=== PATIENT | female | born 2000 | race Caucasian/White ===

== ENCOUNTER 2020-02-03 08:46 | Outpatient (CLI) | payer OTHER, SELFPAY ==
[2020-02-03 12:14] LABS: Thyroid Stimulating Hormone 10.29 uIU/mL (0.52-4.13)
== END 2020-02-03 08:47 | disposition home or self-care (01) ==
LOC: CHSLAB 08:52
PROVIDERS: PCP Family Medicine; Visit Provider Family Medicine
DX: E03.9 Hypothyroidism, unspecified (principal)
CPT/HCPCS: 36415; 84443

== ENCOUNTER 2020-02-04 09:26 | Outpatient (CLI) | payer OTHER, SELFPAY ==
--- NOTE | ~2020-02-04 | US_ITS ---
US thyroid INDICATION: Nontoxic goiter TECHNIQUE: Real-time sonographic images of the thyroid gland were obtained. COMPARISON: No prior studies for comparison. FINDINGS: The right thyroid lobe measures 5.1 x 1.8 x 1.7 cm. The left thyroid lobe measures 4.8 x 1 .7 x 1.9 cm. There is normal echotexture and echogenicity throughout the thyroid gland. No discrete n odules identified. Normal vascular flow is present. IMPRESSION: 1. Normal thyroid without discrete nodule or abnormal vascularity. Reviewed, dictated and finalized at location A.
== END 2020-02-04 09:27 | disposition home or self-care (01) ==
PROVIDERS: PCP Family Medicine; Visit Provider Family Medicine
DX: E04.9 Nontoxic goiter, unspecified (principal)
CPT/HCPCS: 76536

== ENCOUNTER 2020-04-21 09:45 | Outpatient (CLI) | payer OTHER, SELFPAY ==
[2020-04-24 11:13] LABS: TB Skin Test Erythema 0 mm; TB Skin Test Induration 0 mm (0-10); TB Skin Test Interpretation Negative (Negative); TB Skin Test Site Left Arm
== END 2020-04-21 09:46 | disposition home or self-care (01) ==
LOC: CHSLAB 09:48
PROVIDERS: PCP Family Medicine; Visit Provider Family Medicine
DX: Z11.1 Encounter for screening for respiratory tuberculosis (principal)
CPT/HCPCS: 36415; 86580

== ENCOUNTER 2020-07-01 17:06 | Outpatient (CLI) | payer OTHER, SELFPAY ==
[2020-07-01 19:14] LABS: Thyroid Stimulating Hormone 14.17 uIU/mL (0.36-3.74)
== END 2020-07-01 17:07 | disposition home or self-care (01) ==
PROVIDERS: PCP Family Medicine; Visit Provider Family Medicine
DX: E03.9 Hypothyroidism, unspecified (principal)
CPT/HCPCS: 36415; 84443

== ENCOUNTER 2020-08-10 10:34 | Emergency (ER) | payer OTHER, SELFPAY ==
--- NOTE | ~2020-08-10 | CT_ITS ---
EXAMINATION: CT abdomen pelvis w con EXAM DATE: 08/10/2020 13:37 INDICATION: Mid abdominal pain, nausea, headache and diarrhea. Symptoms 1 day. TECHNIQUE: Spiral CT of the abdomen and pelvis was performed following intravenous injection of 100 m L Omnipaque 350. Axial, coronal and sagittal images were reviewed. The dose-length product (DLP) fo r this examination was 1500.24 mGy-cm. The exposure was tailored according to patient size (auto mA exposure control), and iterative reconstruction (ASIR) was used as additional dose reduction techniqu e. There is no prior study for comparison. FINDINGS: There is hepatic steatosis without suspicious focal lesion identified. Spleen, adrenal glan ds, pancreas are unremarkable. Gallbladder is unremarkable. No biliary obstruction. Portal and spl enic veins are patent. Kidneys enhance symmetrically. There is no hydronephrosis. The uterus and ovaries are unremarkable, no adnexal mass. The bladder is unremarkable. There is no retroperitoneal or pelvic lymphadenopathy. The appendix is normal. The stomach and small bowel are unremarkable. There is expected amount of c olonic stool. No free intraperitoneal gas. The heart is normal in size. There are no pericardial or pleural effusions. The lung bases are unremarkable. There are no osteoblastic or osteolytic les ions identified. IMPRESSION: 1. Hepatic steatosis. 2. No acute intra-abdominal findings. Reviewed, dictated and finalized at location B. SECRETARY
[2020-08-10 11:49] VITALS: BP 129/74; PULSE 99; RESP 16; TEMP 36.7; O2SAT 99
--- NOTE | 2020-08-10 12:26 | ECG_ITS ---
Measurements Intervals [place] Rate: 78 P: 49 [place]: 170 QRS: 44 QRSD: 106 T: 6 QT: 401 QTc: 457 Interpretive Statements SINUS RHYTHM NONSPECIFIC T-WAVE ABNORMALITY- INFERIOR LEADS BASELINE WANDER- V1 BORDERLINE ECG Electronically Signed On 08-10-2020 12:52:29 BUILDING CARPENTER by George Gasca D.O.
[2020-08-10 12:52] LABS: Basophils Percent Auto 0.8 % (0.0-1.0); Eosinophils Absolute Auto 0.38 K/mm3 (0.02-0.50); Hematocrit 38.8 % (35.0-49.0); Hemoglobin 12.6 g/dL (12.0-15.0); Immature Granulocyte Absolute 0.06 K/mm3 (0.00-0.00); Immature Granulocyte Percent A 0.5 % (0.0-0.0); Lymphocytes Percent Auto 26.9 % (18.0-42.0); Mean Corpuscular HGB Conc 32.5 g/dL (32.0-36.0); Mean Corpuscular Hemoglobin 27.9 pg (27.0-31.0); Mean Corpuscular Volume 85.8 fL (78.0-102.0); Mean Platelet Volume 9.4 fl (9.2-11.8); Monocytes Absolute Auto 0.66 K/mm3 (0.10-0.90); Monocytes Percent Auto 5.2 % (2.0-11.0); Neutrophils Absolute Auto 8.1 K/mm3 (1.7-7.2); Neutrophils Percent Auto 63.6 % (50.0-70.0); Platelet Count Result 401 K/mm3 (150-420); Red Blood Count 4.52 M/mm3 (4.20-5.40); Red Cell Distribution Width 12.3 % (11.6-14.4); White Blood Count 12.7 K/mm3 (4.8-10.8)
[2020-08-10 12:54] LABS: Appearance Urine Clear (Clear); Bilirubin Urine Negative (Negative); Color Urine Yellow (Yellow); Glucose Urine UA Negative (Negative); Ketones Urine Trace (Negative); Leukocyte Esterase Ur Negative (Negative); Nitrate Urine Negative (Negative); Protein Urine Negative (Negative); Specific Grav Ur 1.025 (1.010-1.020); Urobilinogen Urine 0.2 mg/dL (0.2-1.0)
[2020-08-10 12:55] LABS: Pregnancy On Board Control Positive; Urine Pregnancy Test Negative
[2020-08-10 12:58] LABS: Add Urine Microscopic? YES; Bacteria Urine Trace /hpf; Blood Urine Trace-Intact (Negative); RBC Urine 0-2 /hpf (0-2); Squamous Epithelial Cell Urine Occasional /hpf (Few); WBC Urine 0-3 /hpf (0-3)
[2020-08-10 13:14] LABS: Lactic Acid Reflex 2.1 mmol/L (0.4-2.0)
[2020-08-10] MEDS: ONDANSETRON INJ 4 MG/2 ML VIAL IV PUSH (13:16)
[2020-08-10] MEDS: SODIUM CHLORIDE 0.9% IV 1,000 ML 999 ML IV CONT (13:17)
[2020-08-10 13:21] LABS: Alanine Aminotransferase 58 U/L (14-59); Albumin Level 3.7 g/dL (3.4-5.0); Alkaline Phosphatase 47 U/L (46-116); Anion Gap 14 mmol/L (8-16); Aspartate Amino Transferase 44 U/L (15-37); Bilirubin,Total 0.3 mg/dL (0.00-1.00); Blood Urea Nitrogen 16 mg/dL (7-18); Calcium 9.5 mg/dL (8.5-10.1); Carbon Dioxide 25 mmol/L (21-32); Chloride 99 mmol/L (98-108); Estimated CRCL calculation 154 ml/min; Estimated Glomerular Filt Rate > 60; Glucose 85 mg/dL (70-99); Lipase 89 U/L (73-393); Osmolality Calculated 286 mOsm/kg (285-295); Potassium 4.2 mmol/L (3.5-5.1); Sodium 138 mmol/L (136-145); Thyroid Stimulating Hormone 3.46 uIU/mL (0.36-3.74); Total Protein 8.1 g/dL (6.4-8.2)
--- NOTE | 2020-08-10 13:57 | ED.GENADULT ---
HPI - General Adult General Chief complaint: Recheck/Abnormal Lab/Rx Stated complaint: light headed,faciial spasms Source: patient Mode of arrival: ambulatory Limitations: no limitations History of Present Illness HPI narrative: this is a 20-year-old female with a history of hypothyroidism, history of trichotillomania. The patient presents with some increased weakness nausea with some mild abdominal pain with no diarrhea constipation no fever or chills no chest pain or shortness of breath. The patient feels like she has been having weakness that intensified over the last 24 hours has not had a bed has not been drinking quite as much fluids as she should. There is currently no fever or chills no dysuria no hematuria. Patient has a history of hypothyroidism and her dosages have been adjusted approximately 5 to 6 months ago. Onset (ago): hour(s) Severity: mild Pain Consistency: intermittent Relieving factors: none Exacerbating factors: none Associated symptoms: nausea/vomiting Related Data Home Medications Medication Instructions Recorded Confirmed norgestimate-ethinyl estradiol 1 tablet PO DAILY 08/10/20 08/10/20 [Tri Femynor] Allergies Allergy/AdvReac Type Severity Reaction Status Date / Time No Known Allergies Allergy Verified 07/01/20 08:53 Review of Systems Review of Systems: All systems reviewed & are unremarkable except as noted in HPI and below PMFSH Past Medical History Medical History (Updated 08/10/20 @ 14:02 by Phan Perry MD) Anxiety Depression Hypothyroidism Trichotillomania Surgical History Surgical History No pertinent past surgical history Social History Social History Smoking status: Never smoker Exam Const: General: no acute distress Orientation/consciousness: patient oriented x3 HENMT: Head: normal to inspection Eyes: Conjunctivae: conjunctivae normal Pupils: Equal, round and reactive pupils present EOM: EOMs intact bilaterally Direct Ophthalmoscopy: no photophobia Neck: Neck: normal visual inspection, no lymphadenopathy and no meningeal signs Chest: Chest palpation & inspection: normal inspection of the chest Resp: Effort & Inspection: normal respiratory effort Auscultation: clear to auscultation bilaterally Cardio: Rate: regular rate Rhythm: regular rhythm GI: GI Palp: Yes Soft to palpation : General: Yes no CVA tenderness Urinary Catheter: Urinary Catheter: patent and draining Back/Spine/Pelvis: Back: no CVA tenderness Skin: General skin exam: normal color Rashes: no rashes Neuro: General: patient oriented x3, moves all extremities, no meningeal signs and no focal motor deficits Psych: Appearance: grossly normal Mental Status: mental status grossly normal Course Course Emergency Course: Patient received IV fluids and reassessment of patient is feeling much better currently no nausea abdominal pain is improved, mother was in the room with the patient and advised that she drink plenty of fluids and to follow with the primary care physician if symptoms persist or worsen. Vital Signs Vital signs: Vital Signs Temperature 36.7 C 08/10/20 11:49 Pulse Rate 99 08/10/20 11:49 Respiratory Rate 16 08/10/20 11:49 Blood Pressure 129/74 08/10/20 11:49 Pulse Oximetry 99 08/10/20 11:49 Temperature 36.7 C 08/10/20 11:49 Pulse Rate 99 08/10/20 11:49 Respiratory Rate 16 08/10/20 11:49 Blood Pressure 129/74 08/10/20 11:49 Pulse Oximetry 99 08/10/20 11:49 Medical Decision Making Vital Signs Vital Signs: Vital Signs Temperature 36.7 C 08/10/20 11:49 Pulse Rate 99 08/10/20 11:49 Respiratory Rate 16 08/10/20 11:49 Blood Pressure 129/74 08/10/20 11:49 Pulse Oximetry 99 08/10/20 11:49 Temperature 36.7 C 08/10/20 11:49 Pulse Rate 99 08/10/20 11:49 Respiratory Rate 16
[2020-08-10 14:03] VITALS: BP 131/75; PULSE 79; RESP 16; O2SAT 99
[2020-08-10 15:48] LABS: Reflex Lactic Acid Yes or No Add Lactic
== END 2020-08-10 14:09 | disposition home or self-care (01) ==
PROVIDERS: Emergency Provider Emergency Medicine; PCP Family Medicine
DX: R53.1 Weakness (principal); R11.2 Nausea with vomiting, unspecified
CPT/HCPCS: 36415; 74177; 80053; 81001; 81025; 83605; 83690; 84443; 85025; 93005; 96361; 96374; 99283; 99284; J2405; J7030; Q9965

== ENCOUNTER 2021-02-12 09:11 | Outpatient (CLI) | payer OTHER, SELFPAY ==
[2021-02-12 10:07] LABS: Thyroid Stimulating Hormone Reflex 4.66 u/IU/mL (0.36-3.74)
== END 2021-02-12 09:12 | disposition home or self-care (01) ==
LOC: CHSLAB 09:14
PROVIDERS: PCP Family Medicine; Visit Provider Family Medicine
DX: E11.9 Type 2 diabetes mellitus without complications (principal); E03.9 Hypothyroidism, unspecified
CPT/HCPCS: 36415; 84439; 84443

== ENCOUNTER 2021-04-13 13:58 | Outpatient (CLI) | payer OTHER, SELFPAY ==
[2021-04-13 15:35] LABS: Free T4 Free Thyroxine 1.33 ng/dL (0.76-1.46)
[2021-04-15 10:51] LABS: Vitamin D 25 Hydroxy 21 ng/mL (30-100)
== END 2021-04-13 13:59 | disposition home or self-care (01) ==
LOC: CHSLAB 14:01
PROVIDERS: PCP Family Medicine; Visit Provider Nurse Practitioner Family
DX: E03.9 Hypothyroidism, unspecified (principal); Z79.899 Other long term (current) drug therapy
CPT/HCPCS: 36415; 82306; 84439; 84443

== ENCOUNTER 2021-06-10 09:12 | Outpatient (CLI) | payer OTHER, SELFPAY ==
[2021-06-12 12:40] LABS: Vitamin D 25 Hydroxy 34 ng/mL (30-100)
== END 2021-06-10 09:13 | disposition home or self-care (01) ==
LOC: CHSLAB 09:14
PROVIDERS: PCP Family Medicine; Visit Provider Nurse Practitioner Family
DX: E55.9 Vitamin D deficiency, unspecified (principal)
CPT/HCPCS: 36415; 82306

== ENCOUNTER 2021-08-25 18:26 | Outpatient (NON) | payer OTHER, SELFPAY | END 2021-08-25 18:27 | disposition home or self-care (01) | LOC: CHSLAB 18:27 | PROVIDERS: Visit Provider Nurse Practitioner Family | DX: R10.31 Right lower quadrant pain (principal); R10.32 Left lower quadrant pain; N89.8 Other specified noninflammatory disorders of vagina; M54.9 Dorsalgia, unspecified | CPT/HCPCS: 87491; 87591; 87661 ==

== ENCOUNTER 2021-09-06 14:59 | Outpatient (NON) | payer OTHER, SELFPAY | END 2021-09-06 15:00 | disposition home or self-care (01) | LOC: CHSLAB 15:01 | PROVIDERS: Visit Provider Nurse Practitioner Family | DX: Z12.4 Encounter for screening for malignant neoplasm of cervix (principal); Z13.89 Encounter for screening for other disorder | CPT/HCPCS: 87491; 87591; 88175; G0145 ==

== ENCOUNTER 2022-11-23 16:47 | Outpatient (NON) | payer OTHER, SELFPAY | END 2022-11-23 16:48 | disposition home or self-care (01) | LOC: CHSLAB 16:48 | PROVIDERS: Visit Provider Nurse Practitioner Family | DX: L08.9 Local infection of the skin and subcutaneous tissue, unspecified (principal) | CPT/HCPCS: 87070; 87075; 87205 ==

== ENCOUNTER 2023-12-01 15:23 | Outpatient (CLI) | payer OTHER, SELFPAY ==
[2023-12-01 15:59] LABS: Basophils Absolute Auto 0.09 K/mm3 (0.00-0.10); Basophils Percent Auto 0.7 % (0.0-1.0); Eosinophils Absolute Auto 0.48 K/mm3 (0.02-0.50); Eosinophils Percent Auto 3.8 % (1.0-6.0); Hematocrit 36.9 % (35.0-49.0); Hemoglobin 11.9 g/dL (12.0-15.0); Immature Granulocyte Absolute 0.04 K/mm3 (0.00-0.00); Immature Granulocyte Percent A 0.3 % (0.0-0.0); Lymphocytes Absolute Auto 4.67 K/mm3 (1.10-4.50); Lymphocytes Percent Auto 36.9 % (18.0-42.0); Mean Corpuscular HGB Conc 32.2 g/dL (32.0-36.0); Mean Corpuscular Hemoglobin 27.4 pg (27.0-31.0); Mean Corpuscular Volume 84.8 fL (78.0-102.0); Mean Platelet Volume 9.7 fl (9.2-11.8); Monocytes Absolute Auto 0.71 K/mm3 (0.10-0.90); Monocytes Percent Auto 5.6 % (2.0-11.0); Neutrophils Absolute Auto 6.7 K/mm3 (1.7-7.2); Neutrophils Percent Auto 52.7 % (50.0-70.0); Platelet Count Result 436 K/mm3 (150-420); Red Blood Count 4.35 M/mm3 (4.20-5.40); Red Cell Distribution Width 12.6 % (11.6-14.4); White Blood Count 12.7 K/mm3 (4.8-10.8)
[2023-12-01 16:18] LABS: Alanine Aminotransferase 32 U/L (14-59); Albumin Level 3.1 g/dL (3.4-5.0); Alkaline Phosphatase 59 U/L (46-116); Anion Gap 10 mmol/L (8-16); Aspartate Amino Transferase 21 U/L (15-37); Bilirubin,Total 0.1 mg/dL (0.00-1.00); Blood Urea Nitrogen 12 mg/dL (7-18); Calcium 9.1 mg/dL (8.5-10.1); Carbon Dioxide 27 mmol/L (21-32); Chloride 102 mmol/L (98-108); Estimated Glomerular Filt Rate > 60; Glucose 84 mg/dL (70-99); Osmolality Calculated 286 mOsm/kg (285-295); Potassium 4.3 mmol/L (3.5-5.1); Sodium 139 mmol/L (136-145)
[2023-12-01 16:38] LABS: Thyroid Stimulating Hormone Reflex 0.13 u/IU/mL (0.36-3.74)
[2023-12-01 16:59] LABS: Free T4 Free Thyroxine Reflex 1.28 ng/dL (0.76-1.46)
== END 2023-12-01 15:24 | disposition home or self-care (01) ==
LOC: CHSLAB 15:25
PROVIDERS: PCP Family Medicine; Visit Provider Family Medicine
DX: E11.9 Type 2 diabetes mellitus without complications (principal); E03.9 Hypothyroidism, unspecified
CPT/HCPCS: 36415; 80053; 84439; 84443; 85025

== ENCOUNTER 2024-11-18 07:09 | Emergency (ER) | payer OTHER, SELFPAY ==
[2024-11-18] VITALS (7 sets, daily range): BP systolic 108–160; BP diastolic 58–96; PULSE 83–121; RESP 16–18; TEMP 36.6–36.8; O2SAT 98–100
--- OUTSIDE RECORDS SUMMARY | 2024-11-18 07:12 | XMS_ITS | Patient Health Summary ---
Author Organization [facility] Address [address] [place] [address] Care Team Providers Care Radio Presenter Name Role Phone Serge Mcgee MD Primary Care Provider Note from [facility],non-owned Affiliates and Associated Physician Practices is amultiple site organization consisting of ambulatory clinics and hospital sitesin [place], [place], [place] and [place]. This disclosure is being madepursuant to the Care Everywhere program and may not contain all information available regarding this patient. Last updated 18.[facility] Social History Tobacco Use Types Packs/Day Years Used Date Smoking Tobacco: Never Assessed Sex and Gender Information Value Date Recorded Sex Assigned at Not on file Gender Identity Not on file Sexual Orientation Not on file Care Teams Radio Presenter Relationship Specialty Start Date End Date Serge Mcgee MD [address] [place] [address] [place] [address] PCP - General Family Medicine 03/20/17
--- OUTSIDE RECORDS SUMMARY | 2024-11-18 07:12 | XMS_ITS | Clinical Summary ---
Author Organization [facility] Address [address] [place] [address] Care Team Providers Care Emergency Medicine Physician Name Role Phone Serge Mcgee MD Primary Care Provider Source Comments [facility],non-owned Affiliates and Associated Physician Practices is amultiple site organization consisting of ambulatory clinics and hospital sitesin [place], [place], [place] and [place]. This disclosure is being madepursuant to the Care Everywhere program and may not contain all information available regarding this patient. Last updated 18.[facility] Social History Tobacco Use Types Packs/Day Years Used Date Smoking Tobacco: Never Assessed Sex and Gender Information Value Date Recorded Sex Assigned at Not on file Gender Identity Not on file Sexual Orientation Not on file Plan of Treatment Health Maintenance Due Date Last Done Comments PAP SMEAR 2000 HIV SCREENING 02/08/2015 HPV VACCINE (1 - 3-dose series) 02/08/2015 CHLAMYDIA/GONORRHEA SCREENING 2016 HEPATITIS C SCREENING 02/04/2018 DTAP/TDAP/TD VACCINES (1 - Tdap) 02/08/2019 HEPATITIS B VACCINE (1 of 3 - 19+ 3-dose series) 02/08/2019 COVID-19 VACCINE ( - 2023-2 5 season) 2024 INFLUENZA VACCINE (#1) 2024 DEPRESSION SCREENING 10/09/2024 ZOSTER VACCINE (1 of 2) 02/08/2050 HIB VACCINE Aged Out No longer eligi ble based on patient's age to complete this topic MENINGOCOCCAL (Group B) VACCINE Aged Out No longer eligible based on patient's age to complete this topic MENINGOCOCCAL VACCINE Aged Out No chata nahum eligible based on patient's age to complete this topic PNEUMOCOCCAL VACCINE Aged Out No long er eligible based on patient's age to complete this topic Care Teams Emergency Medicine Physician Relationship Specialty Start Date End Date Serge Mcgee MD [address] [place] [address] [place] [address] PCP - General Family Medicine 03/20/17
--- OUTSIDE RECORDS SUMMARY | 2024-11-18 07:12 | XMS_ITS | Referral Summary ---
Author Organization [facility] Address [address] [place] [address] Care Team Providers Care Youth Ministry Director Name Role Phone Serge Mcgee MD Primary Care Provider Source Comments [facility],non-owned Affiliates and Associated Physician Practices is amultiple site organization consisting of ambulatory clinics and hospital sitesin [place], [place], [place] and [place]. This disclosure is being madepursuant to the Care Everywhere program and may not contain all information available regarding this patient. Last updated 18.[facility] Social History Tobacco Use Types Packs/Day Years Used Date Smoking Tobacco: Never Assessed Sex and Gender Information Value Date Recorded Sex Assigned at Not on file Gender Identity Not on file Sexual Orientation Not on file Plan of Treatment Not on file Care Teams Youth Ministry Director Relationship Specialty Start Date End Date Serge Mcgee MD [address] [place] [address] [place] [address] PCP - General Family Medicine 03/20/17
--- NOTE | 2024-11-18 07:15 | ED.NAVMDI ---
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 She denies any pain. Related Data Allergies Allergy/AdvReac Type Severity Reaction Status Date / Time No Known Allergies Allergy Verified 11/18/24 07:11 Review of Systems Review of Systems: All systems reviewed & are unremarkable except as noted in HPI and below PMFSH Past Medical History Medical History BMI 40.0-44.9, adult Hypothyroidism Trichotillomania Anxiety Depression Surgical History Surgical History No pertinent past surgical history Social History Social History Smoking status: Current every day smoker Alcohol intake: never Substance use: never Lack of Transportation: No Lack of Food: Never True Current Housing: I Have Housing Concerned About Future Housing: No Difficulty Paying Gas/Electric Bills: No Difficulty Paying for Meds: No Currently Unemployed: No Education: Associate Degree Difficulty w/ Childcare or Family Care: No Living arrangements: with family Exam Narrative: General appearance: Well-developed, well-nourished Skin: Normal color Head: Normocephalic, nontraumatic Eyes: Clear conjunctiva ENT: Oropharynx normal, ears normal, nose normal Neck: Supple, nontender Chest and respiratory: Airway patent, no respiratory distress, no accessory muscle use Heart: Regular rate/rhythm Abdomen: Soft, nontender, no organomegaly, quiet bowel sounds Vascular: Normal peripheral pulses, normal capillary refill. Musculoskeletal: Normal range of motion, nontender back Neurologic: Alert and oriented ?3, MECHANICAL RESEARCH ENGINEER is normal as tested, no gross motor deficit Course Vital Signs Vital signs: Vital Signs Temperature 36.6 C 11/18/24 07:09 Pulse Rate 121 H 11/18/24 07:09 Respiratory Rate 18 11/18/24 07:09 Blood Pressure 160/95 H 11/18/24 07:09 Pulse Oximetry 98 11/18/24 07:09 Oxygen Delivery Room Air 11/18/24 07:09 Temperature 36.6 C 11/18/24 07:09 Pulse Rate 83 11/18/24 09:00 Respiratory Rate 16 11/18/24 09:00 Blood Pressure 108/58 L 11/18/24 09:00 Pulse Oximetry 100 11/18/24 09:00 Oxygen Delivery Room Air 11/18/24 09:00 MDM - Nausea/Vomiting/Diarrhea MDM Narrative Medical decision making narrative: patient came with nausea, vomiting and diarrhea Vital signs showing blood pressure 160/95, heart rate of 121 Physical examination showing insignificant abnormalities Differential diagnosis include viral gastroenteritis, dehydration, electrolyte imbalance Blood workup today includes CBC, CMP, showed insignificant abnormality Urinalysis showed Respiratory panel came back negative for COVID, flu and RSV Diagnosis gastroenteritis Discharged on Zofran the pt was discharged to home.the pt,s condition upon discharge was fair,education was provided to the pt in reference to the final impression,discharge study results,treatment,prognosis and need for follow up . Differential Diagnosis Differential diagnosis: Likely gastroenteritis and dehydration Medical Records Attestation: I reviewed the patient's medical records. Lab Data Attestation: I reviewed the patient's lab results. 11/18/24 08:50 11/18/24 08:50 Labs: Lab Results 11/18/24 11/18/24 Range/Units 07:16 08:50 WBC 10.3 (4.8-10.8) K/mm3 RBC 4.70 (4.20-5.40) M/mm3 Hgb 13.0 (12.0-15.0) g/dL Hct 40.9 (35.0-49.0) % MCV 87.0 (78.0-102.0) fL MCH 27.7 (27.0-31.0) pg MCHC 31.8 L (32-36) g/dL RDW 12.4 (11.6-14.4) % Plt Count 260 (150-420) K/mm3 MPV 9.4 (9.2-11.8) fl Immature Gran % (Auto) 0.3 H (0.0-0.0) % Neut % (Auto) 88.4 H (50.0-70.0) % Lymph % (Auto) 6.3 L (18.0-42.0) % [place] % (Auto) 3.2 (2.0-11.0) % Eos % (Auto) 1.6 (1.0-6.0) % Baso % (Auto) 0.2 (0.0-1.0) % Lymph # (Auto) 0.65 L (1.10-4.50) K/mm3 [place] # (Auto) 0.33 (0.10-0.90) K/mm3 Eos # (Auto) 0.17 (0.02-0.50) K/mm3 Baso # (Auto) 0.02 (0.00-0.10) K/mm3 Abs Immat Gran (auto) 0.03 H (0.00-0.00) K/mm3 Absolute Neuts (auto) 9.12 H (1.70-7.20) K/mm3 Absolute Nucleated RBC 0.00 (0.00-0.00) K/mm3 Nucleated RBC % 0.0 (0-0.0) % Sodium 143 (136-145) mmol/L Potassium 4.2 (3.5-5.1) mmol/L Chloride 106 (98-108) mmol/L Carbon Dioxide 26 (21-32) mmol/L Anion Gap 11 (4-12) mmol/L BUN 22 H (7-18) mg/dL Creatinine 0.97 (0.55-1.02) mg/dL Estim Creat Clear Calc 116 ml/min Estimated GFR > 60 (59 - ) Glucose 127 H (70-99) mg/dL Calculated Osmolality 301 H (285-295) mOsm/kg Calcium 8.2 L (8.5-10.1) mg/dL Total Bilirubin 0.4 (0.00-1.00) mg/dL AST 21 (15-37) U/L ALT 43 (14-59) U/L Alkaline Phosphatase 60 (46-116) U/L Total Protein 6.8 (6.4-8.2) g/dL Albumin 3.1 L (3.4-5.0) g/dL Lipase 23 (16-77) U/L Influenza A (RT-PCR) Negative (Negative) Influenza B (RT-PCR) Negative (Negative) RSV (RT-PCR) Negative (Negative) SARS-CoV-2 RNA (RT-PCR) Negative (Negative) Critical Care Time Critical Care Time Critical Care Time: No Discharge Plan Discharge Clinical Impression: Gastroenteritis Patient Disposition: Home, Self-Care Condition: Improved Instructions: Gastroenteritis (ED) Additional Instructions: Return if symptoms are worsening , call your family physician for appointment, take Tylenol as as needed for aches and pain, continue home medications. Patient Language: Cameroonian Prescriptions: New ondansetron 4 mg tablet,disintegrating 4 mg PO Q4H 0 Days Qty: 10 0RF Rx Instructions: give 1st dose 30min before emetogenic chemo No Action Wegovy 0.25 mg/0.5 mL pen injector 0.25 mg subcut WEEKLY Qty: 2 0RF Rx Instructions: administer weeks 1 through 4 of therapy hydroxyzine HCl 25 mg tablet See Rx Instructions .ROUTE .COMPLEX Qty: 20 0RF Dose Instruction: TAKE 1 OR 2 TABLETS EVERY 8 MARILIA HOURS NEEDED SEVERE ANXIETY Rx Instructions: TAKE 1 OR 2 TABLETS EVERY 8 MARILIA HOURS NEEDED SEVERE ANXIETY venlafaxine 150 mg capsule,extended release 24hr See Rx Instructions .ROUTE .COMPLEX Qty: 90 2RF Dose Instruction: TAKE ONE CAPSULE BY MOUTH DAILY Rx Instructions: TAKE ONE CAPSULE BY MOUTH DAILY levothyroxine 150 mcg tablet See Rx Instructions .ROUTE .COMPLEX Qty: 90 0RF Dose Instruction: TAKE ONE TABLET BY MOUTH DAILY Rx Instructions: TAKE ONE TABLET BY MOUTH DAILY norgestimate-ethinyl estradiol 0.18/0.215/0.25 mg-35 mcg (28) tablet See Rx Instructions .ROUTE .COMPLEX Qty: 28 3RF Dose Instruction: TAKE 1 TABLET BY MOUTH EVERY DAY Rx Instructions: TAKE 1 TABLET BY MOUTH EVERY DAY Follow-up/Referrals: Marv Loo DO [Primary Care Provider] - Stand Alone Forms: Work/School Release IP
--- NOTE | 2024-11-18 07:26 | PC.NURSE ---
Thomasid culture sent to lab around 07:10 AM
[2024-11-18] MEDS: SODIUM CHLORIDE 0.9% IV 2,000 ML 999 ML IV CONT (07:37)
[2024-11-18] MEDS: ONDANSETRON INJ 4 MG/2 ML VIAL 8 MG IV PUSH (07:38)
[2024-11-18 08:04] LABS: SARS-CoV-2 RNA PCR Negative (Negative)
--- OUTSIDE RECORDS SUMMARY | 2024-11-18 08:04 | XMS_ITS | Clinical Summary ---
Author Organization [facility] Address [address] [place] [address] Care Team Providers Care Rn Case Manager Hospice Name Role Phone Unavailable Primary Care Provider Unavailabl e Allergies No known active allergies Medications CLONIDINE 0.1 MG tabletIndications: Trouble in sleeping ONE TABLET AT BEDTIME NEEDED FOR TROUBLE SLEEPING 30 tablet 9 Active VIIBRYD 40 MG tabletIndications: Current severe episode of major depressive disorder without psychotic features without prior episode (CMS/HCC HHS/HCC) TAKE 1 TABLET BY MOUTH EVERY DAY WITH FOOD 30 tablet 9 Active LEVOTHYROXINE 100 MCG tabletIndications: Hypothyroidism TAKE 1 TABLET BY MOUTH EVERY DAY 90 tablet 0 Active TRI FEMYNOR 0.18/0.215/0.25 MG-35 MCG tabletIndications: Encounter for surveillance of contraceptive pills TAKE 1 TABLET BY MOUTH EVERY DAY 28 tablet 1 Active Active Problems Problem Noted Date Diagnosed Date 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 07/05/2019 Class 2 obesity due to exces s calories without serious comorbidity with body mass index (BMI) of 36.0 to 36.9 in adult 02/08/2019 Anxiety with depression 04/02/2018 Overview (12/14/2018): Date Onset: 04/02/2018 Hypothyroidism Trichotillomania Resolved Problems Problem Noted Date Diagnosed Date Resolved Date Anxiety 10/13/2018 Cough 08/24/2018 Trouble in sleeping 10/13/19 19 Immunizations Name Administration Dates Next Due Dtap (Generic) 04/15/2004, 1,2000,2000,05/2000 HPV 03/08/2017,05/01/2012 Hepatitis A Vaccine - 2 Dose 05/26/2017,05/01/20 12 Hepatitis B 05/15/2001,2000,2000 Hib (Generic) 05/15/2001,2000,2000 Influenza (Generic) 07/09/2020 Influenza Adult (Generic) 07/02/2019 MMR (Generic) 04/15/2004,02/13/2001 Meningococcal (Generic) 03/08/2017 Polio Ipv (Generic) 04/15/2004,2000,1999,2000 Tdap (Generic) 05/01/2012 Varicella Vaccine 05/07/2014,05/15/2001 Social History Tobacco Use Types Packs/Day Years Used Date Smoking Tobacco: Never Smokeless Tobacco: Never PHQ-2 Answer Date Recorded PHQ-2 Score 4 09/13/2019 Comments No Sex and Gender Information Value Date Recorded Sex Assigned at Not on file Legal Sex Female 7:52 AM CDT Gender Identity Not on file Sexual Orientation Not on file Last Filed Vital Signs Vital Sign Reading Time Taken Comments Blood Pressure 102/68 11/12/2019 4:48 PM RETAIL MANAGER Pulse 78 11/12/2019 4:48 PM RETAIL MANAGER Temperature 35.9 C (96.6 F) 11/12/2019 4:48 PM RETAIL MANAGER Respiratory Rate 18 11/12/2019 4:48 PM RETAIL MANAGER Oxygen Saturation 99% 11/12/2019 4:48 PM RETAIL MANAGER Inhaled Oxygen Concentration - - Weight 115.2 kg (254 lb) 11/12/2019 4:48 PM RETAIL MANAGER Height 172.7 cm (5' 8 ) 11/12/2019 4:48 PM RETAIL MANAGER Body Mass Index 38.62 11/12/2019 4:48 PM RETAIL MANAGER Plan of Treatment Health Maintenance Due Date Last Done Comments Cervical Cancer Screening Pap Smear (Age 21 to 29) Every 3 Years 2000 Cervical Cancer Screening 2000 Hepatitis C 02/08/2018 Annual Physical 05/10/2020 05/10/2019 DTaP, Tdap and Td Vaccines (7 - Td or Tdap) 05/01/2022 05/01/2012, 04/15/2004, 05/15/2001, Additional history exists COVID-19 Vaccine (2023- season) 2024 Influenza Adult (#1) 2024 07/09/2020, 07/02/20 19 Hepatitis B Vaccines Completed 05/15/2001, 2000, 2000 HPV Vaccines Completed 03/08/2017, 05/01/2012 Meningococcal Vaccine Aged Out 03/08/2017 No chata nahum eligible based on patient's age to complete this topic Meningococcal B Vaccine Aged Out No l onger eligible based on patient's age to complete this topic Pneumococcal Vaccine: Pediatrics (0 to 5 Years) and At-Risk Patients (6 to 64 Years) Aged Out No longer eligible based on patient's age to complete this topic RSV Immunizations Under 20 Months Aged Out No longer eligible based on patient's age to complete this topic Insurance [facility] [place] [id number]
--- OUTSIDE RECORDS SUMMARY | 2024-11-18 08:04 | XMS_ITS | Referral Summary ---
Author Organization [facility] Address [address] [place] [address] Care Team Providers Care Whipper Beater Name Role Phone Serge Mcgee MD Primary Care Provider Source Comments [facility],non-owned Affiliates and Associated Physician Practices is amultiple site organization consisting of ambulatory clinics and hospital sitesin [place], [place], [place] and [place]. This disclosure is being madepursuant to the Care Everywhere program and may not contain all information available regarding this patient. Last updated 18.[facility] Social History Tobacco Use Types Packs/Day Years Used Date Smoking Tobacco: Never Assessed Sex and Gender Information Value Date Recorded Sex Assigned at Not on file Gender Identity Not on file Sexual Orientation Not on file Plan of Treatment Not on file Care Teams Whipper Beater Relationship Specialty Start Date End Date Serge Mcgee MD [address] [place] [address] [place] [address] PCP - General Family Medicine 03/20/17
--- OUTSIDE RECORDS SUMMARY | 2024-11-18 08:04 | XMS_ITS | Patient Health Summary ---
Author Organization [facility] Address [address] [place] [address] Care Team Providers Care Family And Marriage Counsellor Name Role Phone Serge Mcgee MD Primary Care Provider Note from [facility],non-owned Affiliates and Associated Physician Practices is amultiple site organization consisting of ambulatory clinics and hospital sitesin [place], [place], [place] and [place]. This disclosure is being madepursuant to the Care Everywhere program and may not contain all information available regarding this patient. Last updated 18.[facility] Social History Tobacco Use Types Packs/Day Years Used Date Smoking Tobacco: Never Assessed Sex and Gender Information Value Date Recorded Sex Assigned at Not on file Gender Identity Not on file Sexual Orientation Not on file Care Teams Family And Marriage Counsellor Relationship Specialty Start Date End Date Serge Mcgee MD [address] [place] [address] [place] [address] PCP - General Family Medicine 03/20/17
--- OUTSIDE RECORDS SUMMARY | 2024-11-18 08:04 | XMS_ITS | Clinical Summary ---
Author Organization [facility] Address [address] [place] [address] Care Team Providers Care Professional Fee Coder Name Role Phone Serge Mcgee MD Primary Care Provider Source Comments [facility],non-owned Affiliates and Associated Physician Practices is amultiple site organization consisting of ambulatory clinics and hospital sitesin [place], [place], [place] and [place]. This disclosure is being madepursuant to the Care Everywhere program and may not contain all information available regarding this patient. Last updated 18.[facility] tab ticketbroker Social History Tobacco Use Types Packs/Day Years [...] age to complete this topic Care Teams Professional Fee Coder Relationship Specialty Start Date End Date Serge Mcgee MD [address] [place] [address] [place] [address] PCP - General Family Medicine 03/20/17
[2024-11-18 08:07] LABS: Influenza A QL RT-PCR Negative (Negative); Influenza B QL RT-PCR Negative (Negative); RSV RNA, RT-PCR Negative (Negative)
[2024-11-18] MEDS: KETOROLAC 30 MG/ML VIAL (*BKC) IV PUSH (08:07)
[2024-11-18 08:55] LABS: Basophils Absolute Auto 0.02 K/mm3 (0.00-0.10); Basophils Percent Auto 0.2 % (0.0-1.0); Eosinophils Absolute Auto 0.17 K/mm3 (0.02-0.50); Eosinophils Percent Auto 1.6 % (1.0-6.0); Hematocrit 40.9 % (35.0-49.0); Immature Granulocyte Absolute 0.03 K/mm3 (0.00-0.00); Immature Granulocyte Percent A 0.3 % (0.0-0.0); Lymphocytes Absolute Auto 0.65 K/mm3 (1.10-4.50); Lymphocytes Percent Auto 6.3 % (18.0-42.0); Mean Corpuscular HGB Conc 31.8 g/dL (32-36); Mean Corpuscular Hemoglobin 27.7 pg (27.0-31.0); Mean Platelet Volume 9.4 fl (9.2-11.8); Monocytes Absolute Auto 0.33 K/mm3 (0.10-0.90); Monocytes Percent Auto 3.2 % (2.0-11.0); Neutrophils Absolute Auto 9.12 K/mm3 (1.70-7.20); Neutrophils Percent Auto 88.4 % (50.0-70.0); Platelet Count Result 260 K/mm3 (150-420); Red Cell Distribution Width 12.4 % (11.6-14.4); White Blood Count 10.3 K/mm3 (4.8-10.8)
[2024-11-18 09:30] LABS: Alanine Aminotransferase 43 U/L (14-59); Albumin Level 3.1 g/dL (3.4-5.0); Alkaline Phosphatase 60 U/L (46-116); Anion Gap 11 mmol/L (4-12); Aspartate Amino Transferase 21 U/L (15-37); Bilirubin,Total 0.4 mg/dL (0.00-1.00); Blood Urea Nitrogen 22 mg/dL (7-18); Calcium 8.2 mg/dL (8.5-10.1); Carbon Dioxide 26 mmol/L (21-32); Chloride 106 mmol/L (98-108); Estimated CRCL calculation 116 ml/min; Estimated Glomerular Filt Rate > 60; Glucose 127 mg/dL (70-99); Lipase 23 U/L (16-77); Osmolality Calculated 301 mOsm/kg (285-295); Potassium 4.2 mmol/L (3.5-5.1); Sodium 143 mmol/L (136-145); Total Protein 6.8 g/dL (6.4-8.2)
[2024-11-18 10:07] LABS: Add Urine Microscopic? NO; Appearance Urine Clear (Clear); Bilirubin Urine Negative (Negative); Blood Urine Negative (Negative); Color Urine Light Yellow (Yellow); Glucose Urine UA Negative (Negative); Ketones Urine Negative (Negative); Leukocyte Esterase Ur Negative (Negative); Nitrate Urine Negative (Negative); Protein Urine Negative (Negative); Specific Grav Ur 1.025 (1.010-1.020); Urobilinogen Urine 0.2 mg/dL (0.2-1.0)
== END 2024-11-18 09:49 | disposition home or self-care (01) ==
PROVIDERS: Emergency Provider Emergency Medicine; PCP Family Medicine
DX: K52.9 Noninfective gastroenteritis and colitis, unspecified (principal); F17.200 Nicotine dependence, unspecified, uncomplicated; Z20.822 Contact with and (suspected) exposure to COVID-19
CPT/HCPCS: 36415; 80053; 81003; 83690; 85025; 87637; 96361; 96374; 96375; 99284; J1885; J2405; J7030